=== PATIENT | female | born 1995 | race Hispanic/Latino ===

== ENCOUNTER 2018-10-06 20:59 | Emergency (ER) | payer OTHER ==
[2018-10-06 21:55] LABS: BASOPHILS % (AUTO) 0.7 % (0.0-5.0); EOSINOPHILS % (AUTO) 1.3 % (0.0-8.0); HEMATOCRIT 40.9 % (36-48); LYMPHOCYTES % (AUTO) 17.3 % (21.0-51.0); MEAN CORPUSCULAR HEMOGLOBIN 28.3 pg (27.0-33.0); MEAN CORPUSCULAR VOLUME 85.9 fL (80-100); MONOCYTES % (AUTO) 8.2 % (3.0-13.0); NEUTROPHILS % (AUTO) 72.5 % (40.0-77.0); PLATELET COUNT (AUTO) 289 K/uL (130-400); RED BLOOD CELL COUNT(AUTO) 4.76 MIL/uL (4.00-5.50); RED CELL DISTRIBUTION WIDTH 14.1 % (11.0-15.5)
[2018-10-06 22:10] LABS: CARBON DIOXIDE 27 mmol/L (21-32); CHLORIDE 100 mmol/L (101-111); CREATININE 0.7 mg/dL (0.5-1.5); GLOMERULAR FILTR. RATE CALC 112 mL/min (>60); GLUCOSE,RANDOM 121 mg/dL (70-105); POTASSIUM 3.5 mmol/L (3.5-5.1); SODIUM SERUM 138 mmol/L (136-145); UREA NITROGEN, BLOOD 18 mg/dL (7-18)
[2018-10-06 22:14] LABS: ALANINE AMINOTRANSFERASE 13 U/L (12-78); ALBUMIN 4.2 g/dL (3.5-5.0); ASPARTATE AMINOTRANSFERASE 19 U/L (10-37); BILIRUBIN,TOTAL 0.8 mg/dL (0.2-1.0); TOTAL PROTEIN, SERUM 8.1 g/dL (6.0-8.3)
[2018-10-06 22:15] LABS: ACETAMINOPHEN < 1 mcg/mL (10-30); ALCOHOL, BLOOD < 3 mg/dL (0-10); SALICYLATE < 2.8 mg/dL (2.8-20.0)
[2018-10-06 23:02] LABS: APPEARANCE,URINE Clear (CLEAR); BILIRUBIN,URINE Negative (NEGATIVE); COLOR,URINE Yellow (YELLOW); GLUCOSE, URINE (UA) >=1000 mg/dL (NEGATIVE); KETONES,URINE 15 mg/dL (NEGATIVE); LEUKOCYTE ESTERASE ,URINE Negative (NEGATIVE); NITRATE,URINE Negative (NEGATIVE); OCCULT BLOOD,URINE Negative (NEGATIVE); PH,URINE 5.5 (5.0-8.0); PROTEIN,URINE POS 2+ (NEGATIVE)
[2018-10-06 23:11] LABS: AMPHET/METH SCREEN,URINE NEGATIVE (NEGATIVE); BARBITURATE SCREEN, URINE NEGATIVE (NEGATIVE); BENZODIAZEPINES SCREEN,URINE NEGATIVE (NEGATIVE); CANNABINOID SCREEN,URINE POSITIVE (NEGATIVE); COCAINE SCREEN,URINE NEGATIVE (NEGATIVE); OPIATE SCREEN,URINE NEGATIVE (NEGATIVE); PHENCYCLIDINE SCREEN,URINE NEGATIVE (NEGATIVE)
[2018-10-06 23:13] LABS: HCG,QUAL RESULT NEGATIVE (NEGATIVE)
[2018-10-06 23:14] LABS: BACTERIA,URINE Rare /HPF (None Seen); MUCUS,URINE Few LPF (None Seen); RBC,URINE 0-1 /HPF (0-1); SQUAMOUS EPITHELIAL CELL,UR Few /HPF (0-2); WBC,URINE 0-1 /HPF (0-1)
== END 2018-10-07 02:36 | disposition home or self-care (01) ==
LOC: EEVIPCON 20:59 → EDH 20:59
DX: F43.0 Acute stress reaction (principal); E16.1 Other hypoglycemia
CPT/HCPCS: 36415; 80053; 80305; 81001; 81025; 82948 ×2; 85025; 99284; G0480 ×2; G0481

== ENCOUNTER 2020-02-16 09:01 | Inpatient (IN) | payer SELFPAY ==
[~2020-02-16] VITALS: Ht 162.6 cm; Wt 69.4 kg
[2020-02-16] MEDS ORDERED: HALOPERIDOL LACTATE 5 MG/ML VIAL ONE (09:26)
[2020-02-16] MEDS ORDERED: SODIUM CHLORIDE 0.9% 1000ML 1,000 ML IV ONE (09:26)
[2020-02-16] MEDS ORDERED: ONDANSETRON HCL 4 MG/2 ML VIAL ONE (09:26)
[2020-02-16 09:31] LABS: APPEARANCE,URINE Clear (CLEAR); BILIRUBIN,URINE Negative (NEGATIVE); COLOR,URINE Yellow (YELLOW); GLUCOSE, URINE (UA) Negative (NEGATIVE); KETONES,URINE Negative (NEGATIVE); LEUKOCYTE ESTERASE ,URINE Negative (NEGATIVE); NITRATE,URINE Negative (NEGATIVE); OCCULT BLOOD,URINE Negative (NEGATIVE); PH,URINE 6.5 (5.0-8.0); PROTEIN,URINE Negative (NEGATIVE)
[2020-02-16 09:32] LABS: BASOPHILS % (AUTO) 0.5 % (0.0-5.0); LYMPHOCYTES % (AUTO) 25.7 % (21.0-51.0); MEAN CORPUSCULAR HEMOGLOBIN 27.2 pg (27.0-33.0); MEAN CORPUSCULAR HGB CONC 32.6 g/dL (32.0-36.0); MEAN CORPUSCULAR VOLUME 83.3 fL (79-99); MONOCYTES % (AUTO) 6.4 % (3.0-13.0); NEUTROPHILS % (AUTO) 66.1 % (40.0-77.0); PLATELET COUNT (AUTO) 220 K/uL (130-400); RED BLOOD CELL COUNT(AUTO) 4.56 MIL/uL (4.00-5.50); RED CELL DISTRIBUTION WIDTH 14.3 % (11.0-15.5); WHITE BLOOD COUNT (AUTO) 7.7 K/uL (4.8-10.8)
[2020-02-16 09:34] LABS: HCG,QUAL RESULT NEGATIVE (NEGATIVE)
[2020-02-16 09:39] LABS: AMPHET/METH SCREEN,URINE NEGATIVE (NEGATIVE); BARBITURATE SCREEN, URINE NEGATIVE (NEGATIVE); BENZODIAZEPINES SCREEN,URINE NEGATIVE (NEGATIVE); CANNABINOID SCREEN,URINE POSITIVE (NEGATIVE); COCAINE SCREEN,URINE NEGATIVE (NEGATIVE); OPIATE SCREEN,URINE NEGATIVE (NEGATIVE); PHENCYCLIDINE SCREEN,URINE NEGATIVE (NEGATIVE)
[2020-02-16 09:40] LABS: CARBON DIOXIDE 26 mmol/L (21-32); CHLORIDE 102 mmol/L (101-111); CREATININE 0.8 mg/dL (0.5-1.5); GLOMERULAR FILTR. RATE CALC 94 mL/min (>60); GLUCOSE,RANDOM 67 mg/dL (70-105); POTASSIUM 3.5 mmol/L (3.5-5.1); SODIUM SERUM 137 mmol/L (136-145); UREA NITROGEN, BLOOD 12 mg/dL (7-18)
[2020-02-16] MEDS ORDERED: DEXTROSE 50%-WATER 50 ML DISP.SYRIN IV ONE ×2 (09:46→10:52)
[2020-02-16 09:47] LABS: ALANINE AMINOTRANSFERASE 21 U/L (12-78); ASPARTATE AMINOTRANSFERASE 23 U/L (10-37); BILIRUBIN,DIRECT 0.1 mg/dL (0.0-0.3); BILIRUBIN,TOTAL 0.4 mg/dL (0.2-1.0); CREATINE KINASE, TOTAL 122 U/L (21-232); TOTAL PROTEIN, SERUM 7.4 g/dL (6.0-8.3)
[2020-02-16 10:05] LABS: LIPASE < 50 U/L (114-286)
[2020-02-16] MEDS ORDERED: DEXTROSE 5 %-0.45 % NACL 1,000 ML IV ONE (11:02)
[2020-02-16] MEDS ORDERED: ACETAMINOPHEN-CODEINE 300/30MG TAB PO PRN (12:30)
[2020-02-16] MEDS ORDERED: MORPHINE SULFATE 2 MG/ML 1ML SYG IV PRN (12:30)
[2020-02-16] MEDS: DEXTROSE 5 % AND 0.9 % NACL 1,000 ML IV SCH ×2 (12:30→22:30)
[2020-02-16 13:00] VITALS: BP 108/59
[2020-02-16 13:39] LABS: HEMOGLOBIN A1C 7.6 % (4.0-6.0)
[2020-02-16 13:46] LABS: THYROID STIMULATING HORMONE 2.27 uIU/mL (0.36-3.74)
[2020-02-16] MEDS ORDERED: DEXTROSE 5 % AND 0.9 % NACL 1,000 ML IV ONE (14:24)
--- NOTE | 2020-02-16 16:15 | NUR ---
CM NOTE/IA UNSUCCESSFUL MEET WITH PATIENT IN ROOM. PATIENT HAS COVERS OVER HER HEAD AND WHEN ASKED IF I COULD ASK SOME QUESTIONS, SHE DID NOT RESPOND AND KEPT HER EYES CLOSED. PER NURSE, ALLEN GEORGE, PATIENT RESPONDS BUT DOESNT WANT TO OPEN HER EYES. CM TO FOLLOW. Addendum: 02/16/20 at 1618 by PACO SOMMER RN CM Amended: Links added.
[2020-02-16] MEDS ORDERED: ZOSYN 3.375GM+NS 50ML 50 ML IV SCH (17:00)
[2020-02-16] MEDS ORDERED: PHARMACY COMMUNICATION MISC SCH (19:15)
[2020-02-16 19:59] VITALS: BP 124/77
[2020-02-16] MEDS: ZOSYN 3.375GM+NS 50ML 50 ML IV SCH (20:37)
[2020-02-16] MEDS: FAMOTIDINE/PF 20 MG/2 ML VIAL IV SCH (20:37)
[2020-02-16 23:30] VITALS: BP 109/68
[2020-02-17 04:03] VITALS: BP 139/88
[2020-02-17 05:22] LABS: BASOPHILS % (AUTO) 0.7 % (0.0-5.0); EOSINOPHILS % (AUTO) 2.4 % (0.0-8.0); HEMATOCRIT 33.6 % (36-48); LYMPHOCYTES % (AUTO) 33.3 % (21.0-51.0); MEAN CORPUSCULAR HEMOGLOBIN 27.3 pg (27.0-33.0); MEAN CORPUSCULAR VOLUME 82.8 fL (79-99); MONOCYTES % (AUTO) 8.2 % (3.0-13.0); NEUTROPHILS % (AUTO) 55.3 % (40.0-77.0); PLATELET COUNT (AUTO) 200 K/uL (130-400); RED BLOOD CELL COUNT(AUTO) 4.06 MIL/uL (4.00-5.50); RED CELL DISTRIBUTION WIDTH 14.1 % (11.0-15.5); WHITE BLOOD COUNT (AUTO) 7.5 K/uL (4.8-10.8)
[2020-02-17 05:34] LABS: CARBON DIOXIDE 28 mmol/L (21-32); CHLORIDE 106 mmol/L (101-111); CREATININE 0.7 mg/dL (0.5-1.5); GLOMERULAR FILTR. RATE CALC 110 mL/min (>60); GLUCOSE,RANDOM 140 mg/dL (70-105); POTASSIUM 3.6 mmol/L (3.5-5.1); SODIUM SERUM 140 mmol/L (136-145); UREA NITROGEN, BLOOD 7 mg/dL (7-18)
[2020-02-17] MEDS: ZOSYN 3.375GM+NS 50ML 50 ML IV SCH ×3 (06:36→20:35)
[2020-02-17] MEDS: DEXTROSE 5 % AND 0.9 % NACL 1,000 ML IV SCH (06:36)
[2020-02-17 08:00] VITALS: BP 130/68
[2020-02-17] MEDS: FAMOTIDINE/PF 20 MG/2 ML VIAL IV SCH ×2 (09:59→20:35)
[2020-02-17] MEDS: THIAMINE HCL 100 MG TABLET PO SCH (10:00)
[2020-02-17] MEDS: ENOXAPARIN SODIUM 30 MG/0.3 ML SQ SCH (10:00)
[2020-02-17] MEDS: Vitamin B Complex/Vit C/Folic Acid PO SCH (10:00)
[2020-02-17 11:00] VITALS: BP 116/71
[2020-02-17] MEDS ORDERED: INSULIN HUMULIN R 100 UNIT/ML 3ML SQ SCH (11:45)
[2020-02-17] MEDS ORDERED: GADODIAMIDE 10 MMOL/20 ML VIAL IV ONE (11:58)
[2020-02-17 16:00] VITALS: BP 118/74
[2020-02-17] MEDS: SODIUM CHLORIDE 0.9% 1000ML 1,000 ML IV SCH (16:12)
[2020-02-17] MEDS: INSULIN HUMULIN R 100 UNIT/ML 3ML SQ SCH ×2 (16:12→21:00)
[2020-02-17 19:00] VITALS: BP 118/74
[2020-02-17] MEDS ORDERED: INSULIN GLARGINE 100 UNITS/ML 10 ML VIAL SQ SCH (21:00)
[2020-02-17 23:00] VITALS: BP 155/81
[2020-02-18] MEDS: SODIUM CHLORIDE 0.9% 1000ML 1,000 ML IV SCH (00:15)
[2020-02-18 03:00] VITALS: BP 143/73
[2020-02-18] MEDS: INSULIN HUMULIN R 100 UNIT/ML 3ML SQ SCH (05:32)
[2020-02-18] MEDS: ZOSYN 3.375GM+NS 50ML 50 ML IV SCH (05:32)
[2020-02-18 06:32] LABS: BASOPHILS % (AUTO) 0.8 % (0.0-5.0); EOSINOPHILS % (AUTO) 3.1 % (0.0-8.0); HEMATOCRIT 32.8 % (36-48); LYMPHOCYTES % (AUTO) 42.9 % (21.0-51.0); MEAN CORPUSCULAR HEMOGLOBIN 27.2 pg (27.0-33.0); MEAN CORPUSCULAR HGB CONC 32.6 g/dL (32.0-36.0); MEAN CORPUSCULAR VOLUME 83.2 fL (79-99); MONOCYTES % (AUTO) 8.3 % (3.0-13.0); NEUTROPHILS % (AUTO) 44.6 % (40.0-77.0); PLATELET COUNT (AUTO) 186 K/uL (130-400); RED BLOOD CELL COUNT(AUTO) 3.94 MIL/uL (4.00-5.50); RED CELL DISTRIBUTION WIDTH 13.5 % (11.0-15.5); WHITE BLOOD COUNT (AUTO) 6.1 K/uL (4.8-10.8)
[2020-02-18 06:47] LABS: BILIRUBIN,TOTAL 0.9 mg/dL (0.2-1.0); CREATININE 0.8 mg/dL (0.5-1.5); POTASSIUM 3.7 mmol/L (3.5-5.1); TOTAL PROTEIN, SERUM 5.8 g/dL (6.0-8.3)
[2020-02-18 07:53] VITALS: BP 161/91
[2020-02-18] MEDS: Vitamin B Complex/Vit C/Folic Acid PO SCH (08:36)
[2020-02-18] MEDS: FAMOTIDINE/PF 20 MG/2 ML VIAL IV SCH (08:36)
[2020-02-18] MEDS: ENOXAPARIN SODIUM 30 MG/0.3 ML SQ SCH (08:36)
[2020-02-18] MEDS: THIAMINE HCL 100 MG TABLET PO SCH (08:36)
--- NOTE | 2020-02-18 08:50 | NUR ---
PATIENT SIGNED AMA. 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 ENCOURAGED PATIENT TO STAY AND EDUCATED HER ON THE BENEFITS OF STAYING UNTIL DISCHARGED BY MD. SHE SAID THAT THE ONLY THING THAT SHE WAS WORRIED ABOUT WAS THE COLITIS AND THAT SHE FEELS MUCH BETTER NOW. PT SAID THAT SHE WILL PURCHASE A NEW GLUCOMETER TODAY. SHE DOES NOT HAVE A PCP. PIV REMOVED. TIP WAS INTACT. ALL BELONGINGS WERE PACKED BY PATIENT. SHE CALLED AN UBER TO PICK HER UP.
== END 2020-02-18 11:27 | disposition left against medical advice (07) | DRG 638 ==
LOC: EDH 09:01 → EDHIP 09:02 → 4CH 15:20
PROVIDERS: ADMIT Internal Medicine; ATTEND Internal Medicine
DX: E10.649 Type 1 diabetes mellitus with hypoglycemia without coma (principal); G40.89 Other seizures; K52.9 Noninfective gastroenteritis and colitis, unspecified; R33.9 Retention of urine, unspecified; E10.43 Type 1 diabetes mellitus with diabetic autonomic (poly)neuropathy; K31.84 Gastroparesis; Z83.3 Family history of diabetes mellitus; Z91.19 Patient's noncompliance with other medical treatment and regimen; T38.3X5A Adverse effect of insulin and oral hypoglycemic [antidiabetic] drugs, initial encounter; Y92.89 Other specified places as the place of occurrence of the external cause; Z53.29 Procedure and treatment not carried out because of patient's decision for other reasons
CPT/HCPCS: 36415; 70450; 70553; 74176; 80048; 80053; 80061; 80076; 80305; 81003; 81025; 82550; 82948; 83036; 83605; 83690; 84145; 84443; 85025; A9579; G0378; J1630; J1650; J1815; J2405; J2543; J3490; J7030; J7042; J7070